=== PATIENT | male | born 2000 | race African-American/Black ===

== ENCOUNTER 2021-04-07 10:28 | Emergency (ER) | payer SELFPAY ==
[~2021-04-07] VITALS: Ht 188 cm; Wt 79.4 kg
[2021-04-07] MEDS ORDERED: ONDANSETRON HCL INJ 2MG/ML 2ML 2 MG/ML VIAL IV STA (10:50)
[2021-04-07] MEDS ORDERED: KETOROLAC TROMETHAMINE 30 MG/ML VIAL IV STA (10:50)
[2021-04-07] MEDS ORDERED: SODIUM CHLORIDE 0.9% 1000ML 1,000 ML IV SCH (11:00)
[2021-04-07 11:45] LABS: CLARITY,URINE CLEAR (CLEAR); COLOR,URINE YELLOW (YELLOW)
[2021-04-07 11:46] LABS: KETONES,URINE TRACE (NEGATIVE); LEUKOCYTE ESTERASE ,URINE NEGATIVE (NEGATIVE); NITRITE,URINE NEGATIVE (NEGATIVE); PROTEIN,URINE DIPSTICK NEGATIVE (NEGATIVE); URINE UROBILINOGEN 1 mg/dL (0.2 - 1)
[2021-04-07 11:56] LABS: BACTERIA,URINE FEW /HPF; EPITHELIAL CELLS,URINE FEW /LPF; RBC,URINE 0-5 /HPF (0-5); WBC,URINE (MAN) 0-5 /HPF (0-5)
[2021-04-07 11:58] LABS: BASOPHILS % 0.3 % (0.0-1.0); EOSINOPHILS # (AUTO) 0.1 (0.0-0.4); EOSINOPHILS % 1.3 % (0.0-6.0); HEMATOCRIT 47.4 % (38.2-49.6); HEMOGLOBIN 14.8 g/dL (14.0-18.0); LYMPHOCYTES % 13.3 % (18.0-39.1); MEAN CORPUSCULAR HEMOGLOBIN 26.4 pg (28-32); MEAN CORPUSCULAR HGB CONC 31.2 g/dL (31-35); MEAN CORPUSCULAR VOLUME 84.6 fL (81-99); MONOCYTES # (AUTO) 0.9 (0.2-0.8); MONOCYTES % 12.5 % (4.4-11.3); NEUTROPHILS # (AUTO) 5.2 (2.1-6.9); NEUTROPHILS % 72.3 % (38.7-80.0); PLATELET COUNT 235 x10e3/uL (140-360); RED CELL DISTRIBUTION WIDTH 13.3 % (11.7-14.4)
[2021-04-07] MEDS ORDERED: IOPAMIDOL 370 MG/ML 200 ML INFUS..BTL INJ ONE (12:19)
[2021-04-07] MEDS ORDERED: SODIUM CHLORIDE 0.9% 50ML 50 ML ONE (12:19)
[2021-04-07 12:20] LABS: ALBUMIN 4.1 g/dL (3.5-5.0); ALBUMIN/GLOBULIN RATIO 1.4 (0.8-2.0); ANION GAP 13.1 mmol/L (8-16); CALCIUM 8.9 mg/dL (8.4-10.2); CREATININE, SERUM 1.3 mg/dL (0.72-1.25); POTASSIUM 4.1 mmol/L (3.5-5.1)
[2021-04-07 12:49] VITALS: BP 6/2
[2021-04-07] MEDS ORDERED: ONDANSETRON ODT4 MG PO (12:50)
== END 2021-04-07 12:57 | disposition home or self-care (01) ==
LOC: ER 10:53
DX: R19.7 Diarrhea, unspecified (principal); R10.10 Upper abdominal pain, unspecified; R11.2 Nausea with vomiting, unspecified; J45.909 Unspecified asthma, uncomplicated; Z20.822 Contact with and (suspected) exposure to COVID-19
CPT/HCPCS: 36415; 74177; 80053; 81001; 83690; 85025; 99284; J1885; J2405; J7030; Q9967; U0002

== ENCOUNTER 2023-11-30 01:47 | Emergency (ER) | payer SELFPAY ==
[~2023-11-30] VITALS: Ht 188 cm; Wt 77.1 kg
[~2023-11-30 01:47] MED LIST: AZITHROMYCIN250 MG PO; CYCLOBENZAPRINE5 MG PO; IBUPROFEN200 MG PO; IPRAT-ALBUT 0.5-3 ML NEB; NASACORT16.9 ML; ONDANSETRON ODT4 MG PO; TYLENOL325 MG PO; VENTOLIN HFA18 GM INH
[2023-11-30] MEDS: ACETAMINOPHEN 325 MG TAB PO ONE (03:02)
[2023-11-30] MEDS ORDERED: CORTISPORIN-TC10 M1 LEFT EAR (04:22)
[2023-11-30 04:40] VITALS: PULSE 78; RESP 18; TEMP 98.3
[2023-11-30 04:41] VITALS: BP 132/65; PULSE 74; TEMP 98.3; O2SAT 100
== END 2023-11-30 04:40 | disposition home or self-care (01) ==
LOC: FSED 01:59
DX: S00.83XA Contusion of other part of head, initial encounter (principal); S09.22XA Traumatic rupture of left ear drum, initial encounter; Y93.71 Activity, boxing; Y92.89 Other specified places as the place of occurrence of the external cause; J45.909 Unspecified asthma, uncomplicated; F41.9 Anxiety disorder, unspecified
CPT/HCPCS: 70450; 70486; 99283